=== PATIENT | female | born 1995 | race African-American/Black ===

== ENCOUNTER 2020-03-01 19:43 | Emergency (ER) | payer OTHER ==
[~2020-03-01] VITALS: Ht 162.6 cm; Wt 92.1 kg
[2020-03-01 19:44] VITALS: BP 138/66
[2020-03-01 20:29] LABS: BASO % 0.8 % (0.0-1.0); EOS # 0.1 10^3/uL (0.0-0.5); EOS % 2.7 % (0.0-3.0); HEMOGLOBIN 12.6 g/dl (12.0-15.5); LYMPH % 56.1 % (24.0-44.0); MEAN CORPUSCULAR HEMOGLOBIN 29.2 pg (27.0-33.0); MEAN CORPUSCULAR HGB CONC 31.5 g/dl (32.0-36.5); MEAN CORPUSCULAR VOLUME 92.8 fl (80.0-96.0); MONO # 0.4 10^3/uL (0.0-0.8); NEUTROPHILS # 1.8 10^3/uL (1.5-8.5); NEUTROPHILS % 33.4 % (36.0-66.0); PLATELET COUNT, AUTOMATED 321 10^3/uL (150-450); RED BLOOD COUNT 4.31 10^6/uL (4.00-5.40); WHITE BLOOD COUNT 5.3 10^3/uL (4.0-10.0)
[2020-03-01 20:46] LABS: BLOOD UREA NITROGEN 15 MG/DL (7-18); CALCIUM LEVEL 8.5 MG/DL (8.5-10.1); CARBON DIOXIDE LEVEL 28 MEQ/L (21-32); CHLORIDE LEVEL 109 MEQ/L (98-107); CREATININE FOR GFR 1.11 MG/DL (0.55-1.30); GLOMERULAR FILTRATION RATE > 60.0 (>60); GLUCOSE, FASTING 93 MG/DL (70-100); HCG, SERUM QUANTITATIVE < 1.0 MIU/ML; POTASSIUM SERUM 4.3 MEQ/L (3.5-5.1); SODIUM LEVEL 143 MEQ/L (136-145)
== END 2020-03-01 21:20 | disposition home or self-care (01) ==
LOC: M ED 19:43
DX: N92.0 Excessive and frequent menstruation with regular cycle (principal); T38.4X5A Adverse effect of oral contraceptives, initial encounter

== ENCOUNTER 2020-04-08 17:09 | Emergency (ER) | payer OTHER ==
[~2020-04-08] VITALS: Ht 162.6 cm; Wt 93.7 kg
--- OUTSIDE RECORDS SUMMARY | 2020-04-08 17:18 | CCD ---
Author Author [facility] Address Unknown Phone Unavailable Care Team Providers Care Flatbed Driver Name Role Phone Swatsworth, A Giorgio PA Unavailable Unavailable Swatsworth, A Giorgio PA Unavailable Unavailable Swatsworth, A Giorgio PA Unavailable Unavailable Swatsworth, A Giorgio PA Unavailable Unavailable Swatsworth, A Giorgio PA Unavailable Unavailable Swatsworth, A Giorgio PA Unavailable Unavailable Swatsworth, A Giorgio PA Unavailable Unavailable Swatsworth, A Giorgio PA Unavailable Unavailable Swatsworth, A Giorgio PA Unavailable Unavailable Swatsworth, A Giorgio PA Unavailable Unavailable Swatsworth, A Giorgio PA Unavailable Unavailable Swatsworth, A Giorgio PA Unavailable Unavailable Swatsworth, A Giorgio PA Unavailable Unavailable Swatsworth, A Giorgio PA Unavailable Unavailable GERRY, EDWINA Unavailable Unavailable Re-disclosure Warning The records that you are about to access may contain information from federally-assisted alcohol or drug abuse programs. If such information is present, then the following federally mandated warning applies: This information has been disclosed to you from records protected by federal confidentiality rules (42 CFR part 2). The federal rules prohibit you from making any further disclosure of this information unless further disclosure is expressly permitted by the written consent of the person to whom it pertains or as otherwise permitted by 42 CFR part 2. A general authorization for the release of medical or other information is NOT sufficient for this purpose. The Federal rules restrict any use of the information to criminally investigate or prosecute any alcohol or drug abuse patient.The records that you are about to access may contain highly sensitive health information, the redisclosure of which is protected by Article 27-F of the [place] State Public Health law. If you continue you may have access to information: Regarding HIV / AIDS; Provided by facilities licensed or operated by the [facility] Office of Mental Health; or Provided by the [facility] Office for People With Developmental Disabilities. If such information is present, then the following [facility] mandated warning applies: This information has been disclosed to you from confidential records which are protected by state law. State law prohibits you from making any further disclosure of this information without the specific written consent of the person to whom it pertains, or as otherwise permitted by law. Any unauthorized further disclosure in violation of state law may result in a fine or halfway sentence or both. A general authorization for the release of medical or other information is NOT sufficient authorization for further disc losure. Encounters Encounter Providers Location Date Indications Data Source(s ) Outpatient Attender: EDWINA GARRETT 10:31:00 AM [facility] - 02/22/2020 11:32:00 AM [facility] Patient discharged. Outpatient Attender: EDWINA GARRETT 12:48:09 PM [facility] - 02/06/2020 12:15:00 PM [facility] Patient discharged. Emergency Attender: Giorgio MCNEIL 11/2019 12:39:00 AM EDT - 01/04/2020 01:17:00 AM [facility] Patient discharged. Insurance Providers Payer name Policy type / Coverage type Policy ID Covered libertarian ID Covered libertarian's relationship to noel Policy Noel Plan Information [facility] [employer]Y [id number] SP [id number] [facility] [employer] - O/P [id number] 18 [id number] Problems, Conditions, and Diagnoses Code Display Name Description Problem Type Effective Dates Data Source(s) [id number] Stress fracture, left femur, subsequent encounter for fracture with delayed healing Stress fracture, left femur, subsequent encounter for fracture with delayed healing Diagnosis 02/22/2020 10:31:00 AM [facility] R99 Ill-defined and unknown cause of mortali ty Ill-defined and unknown cause of mortality Diagnosis 02/06/2020 12:15:00 PM [facility] [id number] Personal history of nicotine dependence Personal history of nicotine dependence Diagnosis 01/04/2020 12:39:00 AM T [facility] Z3202 Encounter for test, result neg ative Encounter for test, result negative Diagnosis 01/04/2020 12:39:00 AM EDT [facility] N912 Amenorrhea, unspecified Amenorrhea, unspecified Diagno sis 01/04/2020 12:39:00 AM EDT [facility] Results ID Date Data Source [id number] 02/25/2020 10:35:00 AM EST [facility] [address] [place] [address] PHONE: [phone] FAX: [phone] Name .................. : DEIDRE Puente Acct Number.................. : [id number] ROOM. ................. : Number ................... : [id number] Stay type ............. : O/P Discharge Date......... ... : 02/22/20 Admit Date ....... .. : 02/22/20 Admit Phys .................... : GERRY WATKINS Date of ....... : 1995 Family Phys ................... : UNKNOWN Phone .................. : [phone] Age ................................ : 24 Film# .................. .:[id number] Sex ................................. : F Unsigned transcriptions are preliminary reports and do not represent a medical or legal document MRI LOWER EXT JOINT W&W/O CON [id number] COMPLETE:02/22/20 12:22 EMIGDIO [id number] (REASON FOR PROCESS: PAIN MRI OF THE LEFT HIP WITH AND WITHOUT CONTRAST: FINDINGS: Fracture, destructive osseous lesion or osteonecrosis is not seen. A labral tear is not identified. There is no joint effusion or abnormal bursal fluid collection. The musculotendinous structures are intact. The visualized intrapelvic contents are unremarkable. The uterus, adnexa and urinary bladder are unremarkable. IMPRESSION: Acute path ology not identified. Electronically Reviewed and Signed By Yadiel Briones MD , 02/25/20 10:35, KGG Transcribe Initials: HARRIETT , Transcribe Date: 02/22/20 20:30, Dictation Date: Copy for: GERRY BLAND Copy for: Makenna [facility] REC Page 1 of 1 Name Value Range Interpretation Code Description Data Doris rce(s) Supporting Document(s) ID Date Data Source [id number] 01/04/2020 12:39:00 AM EDT [facility] 1 OrderSheet [facility] Emergency Department [address] [place] [address] Phone #: ext- [phone] 01/04/2020 00:09 Patient: JARED JIANG Sex: F : 1995 Age: 24yWEIGHT:74.8 kg (S) HEIGHT:64 inches (S) BMI:28.3ALLERGIES: No Known Drug AllergyCHIEF COMPLAINT: missed periodDIAGNOSIS: Normal ExamLAB ORDERSOrder Description Priority Entered Acknowledged InitialedUrinalysis (Clean STAT 00:22 01/04/2020 00:58 Zaria Rea) Giorgio MCNEIL;Beta-HCG, Qual STAT 00:22 01/04/2020 00:58 Zaria MCNEIL;DIAGNOSTIC STUDY ORDERSOrder Description Priority Entered Acknowledged InitialedMEDICATION/IV/DRIP/FLUID ORDERSOrder Description Priority Entered Acknowledged InitialedGENERAL ORDERSOrder Description Priority Entered Acknowledged Initialed[Electronically signed by Zaria Quiros R.N. (05:43 01/04/2020)][Electronically signed by Giorgio Jameson (05:58 01/04/2020)][Electronically locked by Zaria Quiros R.N. (05:43 01/04/2020)] Name Value Range Interpretation Code Description Data Doris rce(s) Supporting Document(s) ID Date Data Source [id number] 01/04/2020 12:39:00 AM EDT [facility] 1 Medication Reconciliation Report [facility] Emergency Department [address] [place] [address] Phone #: ext- [phone] 01/04/2020 00:09 Patient: JARED JIANG Sex: F : 1995 Age: 24yWeight: 74.8 kgHeight/Length: 64 in.BMI: 28.3ALLERGIES: No Known Drug AllergyThe patient's Home Medications are listed below:CONTINUE TAKING THE FOLLOWING MEDICATIONS: OTC VitaminsThe source(s) of the original Home Medication information:Not obtained.The following Medications were given to the patient in the Emergency Department:None.The following Medications were prescribed to the patient:None. Name Value Range Interpretation Code Description Data Doris rce(s) Supporting Document(s) ID Date Data Source [id number] 01/04/2020 12:39:00 AM EDT [facility] 1 Medication Administration Record [facility] Emergency Department [address] [place] [address] Phone #: ext- [phone] 01/04/2020 00:09 Patient: JARED JIANG Sex: F : 1995 Age: 24yWeight: 74.8 kgHeight/Length: 64 inBMI: 28.3ALLERGIES: No Known Drug AllergyDate/Time Medication Administered Medication Ordered Name Value Range Interpretation Code Description Data Doris rce(s) Supporting Document(s) ID Date Data Source [id number] 01/04/2020 12:39:00 AM EDT [facility] 1 General Instructions [facility] Emergency Department [address] [place] [address] Phone #: ext- [phone] 01/04/2020 00:09 Patient: JARED JIANG Sex: F : 1995 Age: 24yNormal exam while in the ED.INSTRUCTIONSYour Current Medications: Your current home medications have been reviewed.CONTINUE TAKING THE FOLLOWING MEDICATIONS:OTC Vitamins*.Follow-up:Follow up with your doctor as needed. Reason for referral: evaluation and treatment. Summary of careprovided to patient.Understanding of the discharge instructions verbalized by patient. ADDITIONAL INFORMATIONMedical Screening Exam: No EmergencyYou have had a medical screening exam. The results show that you don't have a condition that needsto be treated in the emergency department.You can safely wait until you can see your healthcare provider for evaluation or george atment. It is up toyou to make an appointment for follow-up care.Medical emergenciesIf you think you have a medical emergency, please come to the emergency department. That's whatwe are here for. A medical emergency might be severe pain. It might be a condition that gets worse.Or it might be problems with a .The emergency department is open to all who need treatment. But if you don't think you have aserious or life-threatening problem, try these other choices.If you have a primary care doctor:Call your doctor before coming to the emergency department.After office hours, someone from your doctor's office is on-call by phone. The person on-call may be 2 General Instructions [facility] Emergency Department [address] [place] [address] Phone #: ext- [phone] 01/04/2020 00:09 Patient: JARED JIANG Sex: F : 1995 Age: 24yable to give you advice over the phone on how to take care of the problemYou may be able to get an appointment to see your doctor.If you don't have a primary care doctor:Call the referral doctor or clinic shown below during office hours. You should be able to make anappointment to be see n.If you aren't sure whether you are having an emergency, you can always return to the emergencydepartment to be looked at.Phone advice from the emergency departmentWe are here 24 hours a day to give emergency care. But this [facility] does not give phone advice formedical conditions. If you need advice for a condition that can't wait to be seen by your doctor, youwill need to come back to this facility in person. [phone] [employer]. [address] [place] [address], [place] [address]. All rights reserved. This information is not intended as asubstitute for professional medical care. Always follow your healthcare professional's instructions. You have been given the following additional information: Medical Screening Exam, Nonemergent(Electronically signed by EWA Monroe 01/04/2020 05:58) Name Value Range Interpretation Code Description Data Doris rce(s) Supporting Document(s) ID Date Data Source [id number] 01/04/2020 12:39:00 AM EDT [facility] 1 Clinical Report - Nurses [facility] Emergency Department [address] [place] [address] Phone #: ext- [phone] 01/04/2020 00:09 Patient: JARED JIANG Sex: F : 1995 Age: 24yTRIAGEArrived by private vehicle. Historian: patient.Triage time: 00:10 01/04/2020. Acuity: LEVEL 4.Chief Complaint: MISSED PERIOD.( Pt requesting test. LMP Dec 02 2019. Has taken home tests 3, reports 2 faint positive results.Contacted clinic and was told to walk in and she didn't have time she reports. Had some pink spotting aweek or two ago, no pain or trauma currently. Is an active duty soldier, who is a senior engineering technician.).SEPSIS SCREEN: Sepsis Screen negative. No suspected or confirmed signs of infection present. --00: Zaria Handy R.N.00:01/04/20. BP: 133/81. MAP: 98. HR: 88. RR: 16. O2 saturation: 99%. Temp: 97.6 F. Pain level now:0/10. --00:19 01/04/20 Zaria Handy R.N.Weight: 74.8 kg stated. Height/Length: 64 inches Per Patient. BMI: 28.3. --00:01/04/20 Zaria Floyd R.N.MedicationsOTC Vitamins. --00:01/04/20 Zaria Handy R.N.AllergiesNo Known Drug Allergy. --00:14 01/04/20 Zaria Handy R.N.PROBLEMS:no known problems.ADDITIONAL SURGERIES:no known surgeries.HistoryPAST MEDICAL HX: Immunizations: up-to-date. 0. Sexual history - sexually active. Nocontraception.SOCIAL HX: Former smoker, end date 2017. Occasional alcohol use. No drug use. She was offeredHIV testing but declined and hepatitis C testing but declined. She has not traveled outside the [place]Infectious disease exposure: No infectious disease exposure. (No known exposure to COVID).SELF HARM ASSESSMENT: Self harm assessment was performed. The patient answered "no" to thequestion(s) "Do you have thoughts of harming or killing yourself?", "Do you have a plan for harming orkilling yourself?" and "Do you have any dangerous items in your possession?". 2 Clinical Report - Nurses [facility] Emergency Department [address] [place] [address] Phone #: ext- [phone] 01/04/2020 00:09 Patient: JARED JIANG Sex: F : 1995 Age: 24y ABUSE ASSESSMENT: No report of abuse. FALL RISK ASSESSMENT: Fall risk assessment completed. No risk factors identified. --00:19 01/04/20 Zaria Handy R.N.PHYSICAL ASSESSMENTlate entry - 00:15 01/04/20. Ambulatory to room.GENERAL / NEURO / PSYCH: Alert. Oriented X 4. Appears in no acute distress. ( texting and on facetime to S.O during triage and assessment.).HEENT: Mucous membranes are pink.RESPIRATORY: Respirations not labored.CVS: Capillary refill less than 2 seconds.GI / : Abdomen soft and nontender. No vaginal bleeding. No vaginal discharge.EXTREMITIES: No lower extremity edema.SKIN: Skin is warm and dry. --01:15 01/04/20 Zaria Handy R.N.NURSING PROGRESS NOTES00:14 01/04/20. Call light placed in reach. Bed placed in lowest position. Brakes of bed on. --01: Zaria Handy R.N.DISPOSITION / DISCHARGE Departure time: 01:16 01/04/2020. Condition at departure: stable. No learning barriers present. Patient verbalized understanding. Written instructions provided in Turkmen. The patient was discharged by the physician accounts payable assistant. She was discharged home. --01:17 01/04/20 Zaria Handy R.N. 01:10 01/04/20. BP: deferred. HR: deferred. RR: deferred. O2 saturation: deferred. Temp: deferred. Pain level now: 0/10. --01:17 01/04/20 Zaria Handy R.N.Locked/Released at 01/04/2020 05:43 by Zaria Handy R.N. Name Value Range Interpretation Code Description Data Doris rce(s) Supporting Document(s) ID Date Data Source [id number] 01/04/2020 12:39:00 AM EDT [facility] 1 Clinical Report - Physicians/Mid Levels [facility] Emergency Department [address] [place] [address] Phone #: ext- [phone] 01/04/2020 00:09 Patient: JARED JIANG Sex: F : 1995 Age: 24y Arrived- By private vehicle. Historian- patient.HISTORY OF PRESENT ILLNESS Chief Complaint: pt would like a test. Last normal menstrual period- Dec 01. This started today and is still present. It was abrupt in onset and has been constant.REVIEW OF SYSTEMSNo nausea, vomiting, diarrhea, black stools or bloody stools. No headache, double vision, faintingepisodes, fever or eye discomfort. No eye discharge, sore throat, cough, difficulty breathing or chest pain.No skin rash, enlarged lymph nodes, chills or joint pain.PAST HISTORYProblems:no known problems. Additional Surgeries: no known surgeries. Medications: OTC Vitamins. Allergies: No Known Drug Allergy.SOCIAL HISTORYFormer smoker. Occasional alcohol use. No drug use.PHYSICAL EXAMHEENT: Normal external inspection.Neck: Neck supple.CVS: Heart sounds normal.Respiratory: No respiratory distress.Abdomen: Nontender.Back: Normal external inspection.Skin: Skin warm and dry. Normal skin color. No rash. Normal skin turgor.Extremities: No pathologic edema.Neuro: Oriented X 3.LABS, X-RAYS, AND EKG 2 Clinical Report - Physicians/Mid Levels [facility] Emergency Department [address] [place] [address] Phone #: ext- [phone] 01/04/2020 00:09 Patient: JARED JIANG Sex: F : 1995 Age: 24y Laboratory Tests: Laboratory tests have been ordered, with results reviewed and considered in the medical decision making process. Urinalysis: (ELLEN: 01/04/2020 00:45) ( MsgRcvd 01/04/2020 00:53) Final results Test Result Flag Units (Reference) URINALYSIS URINALYSIS SOURCE R COLOR yellow (NORMAL: Yello CLARITY clear (NORMAL: Clear SPEC GRAVITY 1.025 (1.001 - 1.030 pH 6 (5 - 9) GLUCOSE NORM (NORMAL: Negat BILIRUBIN NEG (NORMAL: Negat KETONE NEG (NORMAL: Negat PROTEIN NEG (NORMAL: Negat NITRITE NEG (NORMAL: Negat BLOOD NEG (NORMAL: Negat LEUK EST 25 (NORMAL: Negat UROBILINOGEN NOR (less than 1.0 MICROSCOPIC See Below WBC 0 - 1 (NORMAL: NONE RBC 0 - 1 (NORMAL: NONE EPITHELIAL FEW (NORMAL: NONE Beta-HCG, Qual Urine: (ELLEN: 01/04/2020 00:45) ( MsgRcvd 01/04/2020 00:53) Final results Test Result Flag Units (Reference) HCG URINE QUAL NEGATIVE (NORMAL: NEGAT HCG URINE QL REENTER NEGATIVE (NORMAL: NEGAT { KIT LOT # [id number] ){ KIT EXP DATE 12/31/20 ){ PROCEDURAL CONTROL VALID ).PROGRESS AND PROCEDURESCourse of Care: 00:54 Jan 04 2020. Evaluation after observation. (Discussed negative testand pt can follow up at her C at [facility] Patient counseled in person regarding the patient's stable condition, test results, diagnosis and need for follow-up. Patient agrees with plan of care. 00:55 Jan 04 2020. Disposition: Discharged home in good and improved condition (00:55 Jan 04 2020).CLINICAL IMPRESSION Normal exam while in the ED. 3 Clinical Report - Physicians/Mid Levels [facility] Emergency Department [address] [place] [address] Phone #: ext- [phone] 01/04/2020 00:09 Patient: JARED JIANG Sex: F : 1995 Age: 24yINSTRUCTIONS Your Current Medications: Your current home medications have been reviewed. CONTINUE TAKING THE FOLLOWING MEDICATIONS: OTC Vitamins*. Follow- up: Follow up with your doctor as needed. Reason for referral: evaluation and treatment. Summary of care provided to patient. Understanding of the discharge instructions verbalized by patient.(Electronically signed by EWA Monroe 01/04/2020 05:58) Name Value Range Interpretation Code Description Data Doris rce(s) Supporting Document(s) ID Date Data Source [id number] 01/04/2020 12:53:00 AM EDT [facility] Name Value Range Interpretation Code Description Data Doris rce(s) Supporting Document(s) HCG URINE QUAL NEGATIVE NORMAL: NEGATIVE [facility] HCG URINE QL REENTER NEGATIVE NORMAL: NEGATIVE [facility] { KIT LOT # [id number] ){ KIT EXP DATE 12/31/20 ){ PROCEDURAL CONTROL VALID ) ID Date Data Source [id number] 01/04/2020 12:52:00 AM EDT [facility] Name Value Range Interpretation Code Description Data Doris rce(s) Supporting Document(s) URINALYSIS [facility] URINALYSIS SOURCE R [facility] COLOR yellow NORMAL: Yellow [facility] CLARITY clear NORMAL: Clear [facility] Specific gravity of Urine by Test strip 1.025 1.001 - 1.030 [facility] pH 6 5 - 9 [facility] Glucose [Mass/volume] in Urine by Test strip NORM NORMAL: Negat [facility] Bilirubin.total [Presence] in Urine by Test strip NEG NORMAL: Negative [facility] Ketones [Presence] in Urine by Test strip NEG NORMAL: Negative [facility] Protein [Mass/volume] in Urine by Test strip NEG NORMAL: Negat [facility] Nitrite [Presence] in Urine by Test strip NEG NORMAL: Negative [facility] BLOOD NEG NORMAL: Negative [facility] Leukocyte esterase [Presence] in Urine by Test strip 25 NEENA L: Negative [facility] Urobilinogen [Mass/volume] in Urine by Test strip NOR less kareem n 1.0 mg/dL [facility] MICROSCOPIC See Below [facility] ital WBC 0 - 1 NORMAL: NONE SEEN [facility] Erythrocytes [#/volume] in Urine by Test strip 0 - 1 NORMAL: NON E SEEN [facility] EPITHELIAL FEW NORMAL: NONE SEEN [facility] Procedure
--- OUTSIDE RECORDS SUMMARY | 2020-04-08 19:26 | CCD ---
Author Author [facility] Address Unknown Phone Unavailable Care Team Providers Care Remote Broadcast Technician Name Role Phone Swatsworth, A Giorgio PA [...] is protected by Article 27-F of the [place] State Public Health law. If you continue you may have access to information: Regarding HIV / AIDS; Provided by facilities licensed or operated by the [facility] Office of Mental Health; or Provided by the [facility] Office for People With Developmental Disabilities. If such information is present, then the following [facility] mandated warning applies: This information has been [...] law may result in a fine or fdc sentence or both. A general authorization for the release of medical or other information is NOT sufficient authorization for further disc losure. Encounters Encounter Providers Location Date Indications Data Source(s ) Outpatient Attender: EDWINA GARRETT 10:31:00 AM [facility] [place] - 02/22/2020 11:32:00 AM [facility] Patient discharged. Outpatient Attender: EDWINA GARRETT 12:48:09 PM [facility] [place] - 02/06/2020 12:15:00 PM [facility] Patient discharged. Emergency Attender: Giorgio MCNEIL 11/2019 12:39:00 AM EDT - 01/04/2020 01:17:00 AM [facility] Patient discharged. Insurance Providers Payer name Policy type / Coverage type Policy ID Covered constitution party ID Covered constitution party's relationship to noel Policy Noel Plan Information [facility] [employer] D[employer] [id number] SP [id number] [facility] HUMANA - O/P [id number] 18 [id number] Problems, Conditions, and Diagnoses Code Display Name Description Problem Type Effective Dates Data Source(s) [id number] Stress fracture, left femur, subsequent encounter for fracture with delayed healing Stress fracture, left femur, subsequent encounter for fracture with delayed healing Diagnosis 02/22/2020 10:31:00 AM [facility] R99 Ill-defined and unknown cause of mortali ty Ill-defined and unknown cause of mortality Diagnosis 02/06/2020 12:15:00 PM [facility] [id number] Personal history of nicotine dependence Personal history of nicotine dependence Diagnosis 01/04/2020 12:39:00 AM T [facility] Z3202 Encounter for test, result neg ative Encounter for test, result negative Diagnosis 01/04/2020 12:39:00 AM EDT [facility] N912 Amenorrhea, unspecified Amenorrhea, unspecified Diagno sis 01/04/2020 12:39:00 AM EDT [facility] Results ID Date Data Source [id number] 02/25/2020 10:35:00 AM EST [facility] [address] [place] [address] PHONE: [phone] FAX: [phone] Name .................. : DEIDRE Puente Acct Number.................. : [id number] ROOM. ................. : Number ................... : [id number] Stay type ............. : O/P Discharge Date......... ... : 02/22/20 Admit Date ....... .. : 02/22/20 Admit Phys .................... : GERRY WATKINS Date of ....... : 1995 Family Phys ................... : UNKNOWN Phone .................. : [phone] Age ................................ : 24 Film# .................. .:[id number] Sex ................................. : F Unsigned transcriptions are preliminary reports and do not represent a medical or legal document MRI LOWER EXT JOINT W&W/O CON [id number] COMPLETE:02/22/20 12:22 EMIGDIO [id number] (REASON FOR PROCESS: PAIN MRI OF THE [...] Copy for: GERRY BLAND Copy for: Makenna [facility] REC Page 1 of 1 Name Value Range Interpretation Code Description Data Doris rce(s) Supporting Document(s) ID Date Data Source [id number] 01/04/2020 12:39:00 AM EDT [facility] 1 OrderSheet [facility] Emergency Department [address] [place] [address] Phone #: ext- [phone] 01/04/2020 00:09 Patient: JARED JIANG Sex: F : 1995 Age: 24yWEIGHT:74.8 kg (S) HEIGHT:64 inches (S) BMI:28.3ALLERGIES: No Known Drug AllergyCHIEF COMPLAINT: missed periodDIAGNOSIS: Normal ExamLAB ORDERSOrder Description Priority Entered Acknowledged InitialedUrinalysis (Clean STAT 00:22 01/04/2020 00:58 Zaria Rae) Giorgio MCNEIL;Beta-HCG, Qual STAT 00:22 01/04/2020 00:58 Zaria MCNEIL;DIAGNOSTIC STUDY ORDERSOrder Description Priority Entered Acknowledged InitialedMEDICATION/IV/DRIP/FLUID ORDERSOrder Description Priority Entered Acknowledged InitialedGENERAL ORDERSOrder Description Priority Entered Acknowledged Initialed[Electronically signed by Zaria Quiros R.N. (05:43 01/04/2020)][Electronically signed by Giorgio Jameson (05:58 01/04/2020)][Electronically locked by Zaria Quiros R.N. (05:43 01/04/2020)] Name Value Range Interpretation Code Description Data Doris rce(s) Supporting Document(s) ID Date Data Source [id number] 01/04/2020 12:39:00 AM EDT [facility] 1 Medication Reconciliation Report [facility] Emergency Department [address] [place] [address] Phone #: ext- [phone] 01/04/2020 00:09 Patient: [...] rce(s) Supporting Document(s) ID Date Data Source [id number] 01/04/2020 12:39:00 AM EDT [facility] 1 Medication Administration Record [facility] Emergency Department [address] [place] [address] Phone #: ext- [phone] 01/04/2020 00:09 Patient: JARED JIANG Sex: F : 1995 Age: 24yWeight: 74.8 kgHeight/Length: 64 inBMI: 28.3ALLERGIES: No Known Drug AllergyDate/Time Medication Administered Medication Ordered Name Value Range Interpretation Code Description Data Doris rce(s) Supporting Document(s) ID Date Data Source [id number] 01/04/2020 12:39:00 AM EDT [facility] 1 General Instructions [facility] Emergency Department [address] [place] [address] Phone #: ext- [phone] 01/04/2020 00:09 Patient: [...] person on-call may be 2 General Instructions [facility] Emergency Department [address] [place] [address] Phone #: ext- [phone] 01/04/2020 00:09 Patient: [...] day to give emergency care. But this [facility] does not give phone advice formedical conditions. If you need advice for a condition that can't wait to be seen by your doctor, youwill need to come back to this facility in person. [id number] [employer]. [address] [place] [address], [place] [address]. All rights reserved. This information is not intended as asubstitute for professional medical care. Always follow your healthcare professional's instructions. You have been given the following additional information: Medical Screening Exam, Nonemergent(Electronically signed by EWA Monroe 01/04/2020 05:58) Name Value Range Interpretation Code Description Data Doris rce(s) Supporting Document(s) ID Date Data Source [id number] 01/04/2020 12:39:00 AM EDT [facility] 1 Clinical Report - Nurses [facility] Emergency Department [address] [place] [address] Phone #: ext- [phone] 01/04/2020 00:09 Patient: [...] an active duty soldier, who is a highway design engineer.).SEPSIS SCREEN: Sepsis Screen negative. No suspected or [...] your possession?". 2 Clinical Report - Nurses [facility] Emergency Department [address] [place] [address] Phone #: ext- [phone] 01/04/2020 00:09 Patient: [...] Patient verbalized understanding. Written instructions provided in Sinhala. The patient was discharged by the physician assistant farm operations manager. She was discharged home. --01:17 01/04/20 aZria Handy R.N. 01:10 01/04/20. BP: deferred. HR: deferred. RR: deferred. O2 saturation: deferred. Temp: deferred. Pain level now: 0/10. --01:17 01/04/20 Zaria Handy R.N.Locked/Released at 01/04/2020 05:43 by Zaria Handy R.N. Name Value Range Interpretation Code Description Data Doris rce(s) Supporting Document(s) ID Date Data Source [id number] 01/04/2020 12:39:00 AM EDT [facility] 1 Clinical Report - Physicians/Mid Levels [facility] Emergency Department [address] [place] [address] Phone #: ext- [phone] 01/04/2020 00:09 Patient: [...] EKG 2 Clinical Report - Physicians/Mid Levels [facility] Emergency Department [address] [place] [address] Phone #: ext- [phone] 01/04/2020 00:09 Patient: [...] NEGATIVE (NORMAL: NEGAT { KIT LOT # [id number] ){ KIT EXP DATE 12/31/20 ){ PROCEDURAL CONTROL VALID ).PROGRESS AND PROCEDURESCourse of Care: 00:54 Jan 04 2020. Evaluation after observation. (Discussed negative testand pt can follow up at her [facility] at [facility] Patient counseled in person regarding the patient's stable condition, test results, diagnosis and need for follow-up. Patient agrees with plan of care. 00:55 Jan 04 2020. Disposition: Discharged home in good and improved condition (00:55 Jan 04 2020).CLINICAL IMPRESSION Normal exam while in the ED. 3 Clinical Report - Physicians/Mid Levels [facility] Emergency Department [address] [place] [address] Phone #: ext- [phone] 01/04/2020 00:09 Patient: [...] rce(s) Supporting Document(s) ID Date Data Source [id number] 01/04/2020 12:53:00 AM EDT [facility] Name Value Range Interpretation Code Description Data Doris rce(s) Supporting Document(s) HCG URINE QUAL NEGATIVE NORMAL: NEGATIVE [facility] HCG URINE QL REENTER NEGATIVE NORMAL: NEGATIVE [facility] { KIT LOT # [id number] ){ KIT EXP DATE 12/31/20 ){ PROCEDURAL CONTROL VALID ) ID Date Data Source [id number] 01/04/2020 12:52:00 AM EDT [facility] Name Value Range Interpretation Code Description Data Doris rce(s) Supporting Document(s) URINALYSIS [facility] [place] URINALYSIS SOURCE R [facility] COLOR yellow NORMAL: Yellow [facility] CLARITY clear NORMAL: Clear [facility] Specific gravity of Urine by Test strip 1.025 1.001 - 1.030 [facility] pH 6 5 - 9 [facility] Glucose [Mass/volume] in Urine by Test strip NORM NORMAL: Negat [facility] Bilirubin.total [Presence] in Urine by Test strip NEG NORMAL: Negative [facility] Ketones [Presence] in Urine by Test strip NEG NORMAL: Negative [facility] Protein [Mass/volume] in Urine by Test strip NEG NORMAL: Negat [facility] Nitrite [Presence] in Urine by Test strip NEG NORMAL: Negative [facility] BLOOD NEG NORMAL: Negative [facility] Leukocyte esterase [Presence] in Urine by Test strip 25 NEENA L: Negative [facility] Urobilinogen [Mass/volume] in Urine by Test strip NOR less kareem n 1.0 mg/dL [facility] MICROSCOPIC See Below [facility] ital WBC 0 - 1 NORMAL: NONE SEEN [facility] Erythrocytes [#/volume] in Urine by Test strip 0 - 1 NORMAL: NON E SEEN [facility] EPITHELIAL FEW NORMAL: NONE SEEN [facility] Procedure
[2020-04-08 20:02] VITALS: BP 132/70
== END 2020-04-08 20:04 | disposition home or self-care (01) ==
LOC: M ED 17:09
DX: J02.9 Acute pharyngitis, unspecified (principal); Z20.828 Contact with and (suspected) exposure to other viral communicable diseases
CPT/HCPCS: 87880; 99284; U0003

== ENCOUNTER 2020-12-15 21:31 | Emergency (ER) | payer OTHER ==
[~2020-12-15] VITALS: Ht 162.6 cm; Wt 101.8 kg
[2020-12-15 21:32] VITALS: BP 141/85
== END 2020-12-15 23:03 | disposition left against medical advice (07) ==
LOC: M ED 21:31
DX: Z53.21 Procedure and treatment not carried out due to patient leaving prior to being seen by health care provider (principal)

== ENCOUNTER → 2021-02-12 | Outpatient (CLI) | payer OTHER ==
[~2021-02-12] MED LIST: ISOVUE-300 61% 50ML VIAL As Ordered ONE; LIDOCAINE 1% MDV 20ML VIAL As Ordered ONE; TRIAMCINOLONE ACETONIDE SUSP 40 MG/ML VIAL (J3301) As Ordered ONE
--- NOTE | 2021-02-12 09:49 | REP ---
INDICATION: LT HIP SPRAIN. COMPARISON: None TECHNIQUE: The procedure was performed by DEMETRI Herndon, under the direct supervision of Dr Ruvalcaba. The benefits and risks of the procedure were explained to the patient, and an informed consent was obtained. Directly prior to the start of the procedure, a formal time-out was completed in the procedure room. The left hip joint space was localized using fluoroscopic guidance. The skin was prepped and draped in a sterile fashion. Approximately 5 mL of 1% Lidocaine 10 mg/ml was used as a local anesthetic. Using fluoroscopic guidance, a #22 gauge spinal needle was inserted and advanced into the left hip joint space. Approximately 2 mL of Isovue 300 was injected to verify placement. Ten mL of a solution containing 9 mL 1% lidocaine 10 mg/ml and 1 mL Kenalog 40 mg/mL was injected into the joint space. The needle was removed and hemostasis was achieved. FINDINGS: The patient tolerated the procedure well and there were no immediate complications. IMPRESSION: 1. Technically successful left hip steroid injection. 0.1 minutes of fluoroscopy time was utilized for this procedure. Some fluoroscopic images are performed with last image hold technology. These images require no additional radiation. <Electronically signed by Rashmi Ortez > 02/12/21 [id number] <Electronically signed by Scar Ruvalcaba > 02/12/21 [id number]
== END ==
LOC: M RADPRO 07:49
PROVIDERS: ATTEND Physician Assistant Surgical
DX: M24.852 Other specific joint derangements of left hip, not elsewhere classified (principal)
CPT/HCPCS: 20610; 77002; J3301; Q9967